=== PATIENT | male | born 1965 | race Caucasian/White ===

== ENCOUNTER → 2022-10-23 | Outpatient (CLI) | payer OTHER, SELFPAY ==
--- NOTE | 2022-10-23 15:50 | MRI_ITS ---
INDICATION: LOW BACK PAIN radiating into legs bilaterally EXAMINATION: MRI - MR Spine Lumbar W/O Contrast TECHNIQUE: Multiplanar and multisequence MR images of the lumbar spine. IV Contrast Dosage and Agent: None. COMPARISON: None. FINDINGS: VERTEBRAE: Vertebral body heights are preserved. No acute fracture or pathologic marrow replacement. VERTEBRAL ALIGNMENT: No spondylolisthesis. There is preservation of the normal lumbar lordosis. CORD: Normal position and signal intensity of the conus medullaris. L1/L2: Normal disc height and morphology. Normal spinal canal, lateral recesses and neuroforamina. L2/L3: Mild loss of disc space height. No significant central or foraminal stenosis. L3/L4: Mild loss of disc space height. Circumferential annular bulge produces mild central and moderate bilateral foraminal stenosis. L4/L5: Mild loss of disc space height. Circumferential annular bulge combined with posterior element hypertrophy produces moderate central and bilateral foraminal stenosis. L5/S1: Minimal posterior disc bulge with high intensity zone in the posterior annulus. No significant central or foraminal stenosis. SOFT TISSUES: Unremarkable. MRI/Spine Lumbar (Routine) IMPRESSION: Central and bilateral foraminal stenoses at L3-4 and L4-5 as above. Small radial annular tear in the posterior bulge at L5-S1. Electronically Signed: Bob Dalton MD at 18:45 EST ,
== END | disposition home or self-care (01) ==
PROVIDERS: PCP Family Medicine; Referring Provider Family Medicine; Visit Provider Family Medicine
DX: M54.50 Low back pain, unspecified (principal)
CPT/HCPCS: 72148